=== PATIENT | female | born 1985 | race Two or more races ===

== ENCOUNTER 2016-12-30 05:01 | Day surgery (SDC) | payer OTHER ==
[~2016-12-30 05:01] MED LIST: COLACE100 M1 PO; SUDAFED30 M2; ZYRTEC10 M7 PO
--- NOTE | 2016-12-30 10:49 | NUR ---
INCENTIVE SPIROMETRY NOT INDICATED, PT NOT A SMOKER AND IS UNDER 4O YEARS OLD.
[2016-12-30] MEDS ORDERED: PERCOCET 5-3251 EACH PO (23:35)
== END 2016-12-31 10:30 ==
LOC: SRG 05:01 → SHSB 05:02 → ORW 06:50 → PACU 08:05 → OBGF 09:20
PROC: 0UT94ZZ Resection of Uterus, Percutaneous Endoscopic Approach (ICD-10-PCS; principal; 2016-12-30)
PROC: 0UTC4ZZ Resection of Cervix, Percutaneous Endoscopic Approach (ICD-10-PCS; 2016-12-30)
PROC: 0UT74ZZ Resection of Bilateral Fallopian Tubes, Percutaneous Endoscopic Approach (ICD-10-PCS; 2016-12-30)
PROC: 0D5W4ZZ Destruction of Peritoneum, Percutaneous Endoscopic Approach (ICD-10-PCS; 2016-12-30)
PROC: 8E0W4CZ Robotic Assisted Procedure of Trunk Region, Percutaneous Endoscopic Approach (ICD-10-PCS; 2016-12-30)
DX: N73.6 Female pelvic peritoneal adhesions (postinfective) (principal); N80.3 Endometriosis of pelvic peritoneum; G89.29 Other chronic pain; E66.9 Obesity, unspecified; G40.909 Epilepsy, unspecified, not intractable, without status epilepticus; F41.9 Anxiety disorder, unspecified; Z79.899 Other long term (current) drug therapy; Z88.8 Allergy status to other drugs, medicaments and biological substances; Z91.048 Other nonmedicinal substance allergy status; Z87.891 Personal history of nicotine dependence; Z98.51 Tubal ligation status; Z98.890 Other specified postprocedural states
CPT/HCPCS: J0690; J2175; J7030